=== PATIENT | female | born 1965 | race Caucasian/White ===

== ENCOUNTER 2018-01-03 23:32 | Emergency (ER) | payer MEDICAID, OTHER ==
[2018-01-04] MEDS ORDERED: FENTANYL CITRATE INJ/PF 100 MCG/2 ML AMPUL IV ONE (01:31)
[2018-01-04] MEDS ORDERED: ONDANSETRON HCL INJ/PF 4 MG/2 ML SDV IV ONE (01:34)
--- NOTE | 2018-01-04 01:36 | ER Document Report ---
ED General - General Chief Complaint: Abdominal Pain Stated Complaint: FLANK PAIN Time Seen by Provider: 01/04/18 01:19 Notes: Patient is a 52-year-old female who presents emergency department with normal pain. She states her abdominal pain is mainly in the right lower area. This started at around 730 this evening and around 8 PM she ended up having some nausea. She describes her pain as a pushing pain, and when she walks she feels a throbbing pain in her right lower abdomen. She denies any medical history. She does have a history of a tubal ligation. TRAVEL OUTSIDE OF THE [place] IN LAST 30 DAYS: No - Related Data Allergies/Adverse Reactions: No Known Allergies Allergy (Unverified 01/03/18 23:37) Review of Systems - Review of Systems Notes: REVIEW OF SYSTEMS: CONSTITUTIONAL : Denies recent illness. Denies recent unintentional weight loss. Denies fever, chills, or sweats. EENT: Denies eye, ear, throat, or mouth pain, discharge, or symptoms. Denies nasal or sinus congestion. CARDIOVASCULAR: Denies chest pain. RESPIRATORY: Denies shortness of breath, cough, congestion, difficulty breathing , or wheezing. GASTROINTESTINAL: See HPI GENITOURINARY: Denies difficulty urinating, burning, blood in urine, urgency or frequency. MUSCULOSKELETAL: Denies neck and back pain. Denies joint pain or swelling. SKIN: Denies rash, itchiness, or lesions HEMATOLOGIC : Denies easy bruising or bleeding. LYMPHATIC: Denies swollen, painful, enlarged glands. NEUROLOGICAL: Denies no numbness or tingling denies weakness. Denies headache. Denies altered mental status. Denies alteration in speech. PSYCHIATRIC: Denies stress, anxiety, alteration in sleep patterns, or depression. All other systems reviewed and negative. Course - Re-evaluation Re-evalutation: Differential diagnosis includes: Appendicitis, bowel obstruction, mesenteric ischemia, bowel perforation, diverticulitis. 01/04/18 01:15 Based off patient's abdominal pain description and physical exam, I am highly suspicious of appendicitis. Will be sent to CT to rule out appendicitis. Labs will be ordered. 01/04/18 03:00 She has a mild leukocytosis of 11,000 with no shift. She is ready to go to CT. Other labs are unremarkable. 01/04/18 03:59 I have discussed the patient's CAT scan findings with her. She does have some diverticulosis and stool in her ascending colon. I do not suspect she has a bowel perforation, mesenteric ischemia, bowel obstruction, or any life- threatening etiologies at this time. I have educated her on a stool softener and bowel regimen. She will be given Bentyl for pain. Verbal discharge instructions were given to the patient. She verbalized understanding of her discharge instructions. Stable for discharge. - Laboratory Result Diagrams: 01/04/18 01:45 01/04/18 01:45 Laboratory results interpreted by me: 01/04/18 01/04/18 01/04/18 01:45 01:45 02:13 WBC 11.2 H RDW 14.2 H Glucose 172 H Urine Urobilinogen 4.0 H Discharge - Discharge Clinical Impression: Abdominal pain Qualifiers: Abdominal location: right lower quadrant Qualified Code(s): R10.31 - Right lower quadrant pain Condition: Stable Additional Instructions: You have been seen in the emergency department for abdominal pain. The most likely cause of your abdominal pain is constipation on your right side. You also have diverticulosis. Have your primary care doctor refer you to a trade manager for evaluation. Please take Colace, stool softener to help you have regular bowel movements. You may also take Bentyl 4 times a day as needed for the pain. Sent home with a bottle of magnesium citrate. Please drink about a quarter of the bottle. If you do not have a bowel movement in 2 hours from drinking the magnesium citrate you may drink it until your [facility] through the bottle. If you develop a fever of 100.4 F, have increased abdominal pain, do not have a bowel movement for more than 3 days, or if you have any symptoms that are worrisome to you, please return to the emergency department. Prescriptions: Dicyclomine HCl [Bentyl 20 mg Tablet] 20 mg PO QID PRN #20 tablet PRN Reason: Docusate Sodium [Colace 100 mg Capsule] 100 mg PO BID #60 capsule Referrals: NYDIA DARNELL MD [Primary Care Provider] - Follow up as needed
[2018-01-04 01:51] LABS: ABSOLUTE BASOPHILS # (AUTO) 0.1 10^3/uL (0.0-0.2); ABSOLUTE EOSINOPHILS # (AUTO) 0.1 10^3/uL (0.0-0.6); ABSOLUTE MONOCYTES (AUTO) 0.8 10^3/uL (0.1-1.4); ABSOLUTE NEUT (AUTO) 8.2 10^3/uL (1.7-8.2); BASOPHILS % (AUTO) 0.7 % (0-2); EOSINOPHILS % (AUTO) 1.1 % (0-6); HEMATOCRIT 40.3 % (36.0-47.0); HEMOGLOBIN 13.9 g/dL (12.0-15.5); LYMPHOCYTES % (AUTO) 17.5 % (13-45); MEAN CORPUSCULAR HEMOGLOBIN 31.1 pg (27.0-33.4); MEAN CORPUSCULAR HGB CONC 34.5 g/dL (32.0-36.0); MEAN CORPUSCULAR VOLUME 90 fl (80-97); MONOCYTES % (AUTO) 7.5 % (3-13); PLATELET COUNT 233 10^3/uL (150-450); RED BLOOD COUNT 4.46 10^6/uL (3.72-5.28); RED CELL DISTRIBUTION WIDTH 14.2 % (11.5-14.0); SEGMENTED NEUTROPHILS % (AUTO) 73.2 % (42-78); TOTAL CELLS COUNTED % (AUTO) 100 %; WHITE BLOOD COUNT 11.2 10^3/uL (4.0-10.5)
[2018-01-04 02:23] LABS: APPEARANCE,URINE CLEAR; BILIRUBIN,URINE NEGATIVE (NEGATIVE); COLOR,URINE YELLOW; GLUCOSE, URINE NEGATIVE (NEGATIVE); KETONES,URINE NEGATIVE (NEGATIVE); LEUKOCYTE ESTERASE,URINE NEGATIVE (NEGATIVE); NITRITE,URINE NEGATIVE (NEGATIVE); PROTEIN,URINE NEGATIVE (NEGATIVE); URINE SPECIFIC GRAVITY 1.019
[2018-01-04 02:31] LABS: ALANINE AMINOTRANSFERASE 22 U/L (9-52); ALKALINE PHOSPHATASE 76 U/L (38-126); ANION GAP 12 (5-19); ASPARTATE AMINO TRANSFERASE 28 U/L (14-36); BILIRUBIN,DIRECT 0.3 mg/dL (0.0-0.4); BILIRUBIN,TOTAL 0.6 mg/dL (0.2-1.3); BLOOD UREA NITROGEN 13 mg/dL (7-20); CALCIUM 9.3 mg/dL (8.4-10.2); CARBON DIOXIDE 27 mmol/L (22-30); CHLORIDE 101 mmol/L (98-107); GLUCOSE 172 mg/dL (75-110); POTASSIUM 4.5 mmol/L (3.6-5.0); SODIUM 140.4 mmol/L (137-145); TOTAL PROTEIN 6.8 g/dL (6.3-8.2)
--- NOTE | 2018-01-04 03:18 | RADIOLOGY REPORT (SQ) ---
EXAM DESCRIPTION: CT ABDOMEN PELVIS WITH IV CONTRAST COMPLETED DATE/TME: 01/04/2018 01:28 CLINICAL HISTORY: 52 years, Female, Right lower abdominal pain COMPARISON: None. TECHNIQUE: [id number] Images stored on PACS. All CT scanners at this facility use dose modulation, iterative reconstruction, and/or weight based dosing when appropriate to reduce radiation dose to as low as reasonably achievable (ALARA). [facility]: Dose Right [facility]: CareDose [facility]: Dose Right [facility]: Teradose 4D [facility]: [employer] LIMITATIONS: None. FINDINGS: Limited evaluation of the lung bases is unremarkable. Degenerative change lumbar spine. Osseous structures are grossly intact. Diffuse fatty infiltrative change to the liver. The spleen, adrenal glands, pancreas are unremarkable. The kidneys are unremarkable bilaterally. The gallbladder is present. Small hiatal hernia noted. Large amount stool in the colon. No gross evidence for bowel obstruction. No free air or free fluid. Normal appendix. Occasional sigmoid diverticuli. No CT evidence for diverticulitis. IMPRESSION: Fatty infiltrative change to the liver. Sigmoid diverticulosis. No CT evidence for diverticulitis. TECHNICAL DOCUMENTATION: Quality ID # [id number]: Final reports with documentation of one or more dose reduction techniques (e.g., Automated exposure control, adjustment of the mA and/or kV according to patient size, use of iterative reconstruction technique) 2010 [employer]- All Rights Reserved
[2018-01-04] MEDS ORDERED: DICYCLOMINE HCL 20 MG TABLET PO ONE (04:10)
[2018-01-04] MEDS ORDERED: MAGNESIUM CITRATE 296 ML BOTTLE PO ONE (04:11)
[2018-01-04 05:28] VITALS: BP 141/94
== END 2018-01-04 05:28 | disposition home or self-care (01) ==
LOC: ER 23:32
DX: R10.31 Right lower quadrant pain (principal)
CPT/HCPCS: 99284; 96374; 96375; 36415; 85025; 80053; 81001; 74177; J3490 ×2; J3010; J2405